=== PATIENT | female | born 1980 | race Caucasian/White ===

== ENCOUNTER 2019-10-24 19:57 | Emergency (ER) | payer OTHER, SELFPAY ==
--- NOTE | ~2019-10-24 | CT_ITS ---
EXAMINATION: CT abdomen pelvis w con DATE: 10/24/2019 21:27 INDICATION: Suprapubic and right lower quadrant abdominal pain. Nausea. TECHNIQUE: Computed tomography (CT) of the abdomen and pelvis was performed with 100 mL Omnipaque-350 intravenous contrast. Automated exposure control and iterative reconstruction technique were employe d. The dose-length product was 932.05 mGy-cm. COMPARISON: 12/13/2017 FINDINGS: Lung bases are clear. Heart size is normal. No pericardial or pleural effusion. Cholecystectomy clips the gallbladder fossa. Liver, spleen, pancreas, bilateral adrenal glands and kidneys are normal. [place] els including the appendix are normal. Moderate amount of colonic stool. Bladder and anteverted uteru s are normal. Bilateral adnexal cysts measuring 2.1 and 1.5 cm on the right and 1.6 cm on the left. N o free intraperitoneal gas or fluid. No pathologically enlarged abdominal or pelvic lymphadenopathy. Bilateral hip osteoarthritis, mild on the left and mild to moderate on the right. Moderate right sacr oiliitis which could also be degenerative in etiology. IMPRESSION: 1. Bilateral adnexal cysts. No acute intra-abdominal/pelvic process. Reviewed, dictated and finalized at location A. [employer]
[2019-10-24 20:02] VITALS: BP 136/77; PULSE 100; RESP 20; TEMP 36.9; O2SAT 100
[2019-10-24] MEDS: ONDANSETRON INJ 4 MG/2 ML VIAL IV PUSH (20:32)
[2019-10-24] MEDS: MORPHINE SULFATE 4 MG/ML INJ 2 MG IV PUSH (20:32)
[2019-10-24] MEDS: SODIUM CHLORIDE 0.9% IV 1,000 ML 999 ML IV CONT (20:34)
[2019-10-24 20:36] LABS: Add Urine Microscopic? NO; Appearance Urine Clear (Clear); Bilirubin Urine Negative (Negative); Blood Urine Negative (Negative); Color Urine Yellow (Yellow); Glucose Urine UA Negative (Negative); Ketones Urine Negative (Negative); Leukocyte Esterase Ur Negative LEU/UL (Negative); Nitrate Urine Negative (Negative); Protein Urine Negative (Negative); Specific Grav Ur <= 1.005 (1.010-1.020); Urobilinogen Urine 0.2 mg/dL (0.2-1.0); pH Urine 5.5 (5.0-8.0)
[2019-10-24 20:37] LABS: Basophils Absolute Auto 0.02 K/mm3 (0.00-0.10); Basophils Percent Auto 0.2 % (0.0-1.0); Hematocrit 40.6 % (35.0-49.0); Hemoglobin 13.7 g/dL (12.0-15.0); Immature Granulocyte Absolute 0.01 K/mm3 (0.00-0.00); Immature Granulocyte Percent A 0.1 % (0.0-0.0); Lymphocytes Absolute Auto 3.26 K/mm3 (1.10-4.50); Lymphocytes Percent Auto 35.6 % (18.0-42.0); Mean Corpuscular HGB Conc 33.7 g/dL (32.0-36.0); Mean Corpuscular Hemoglobin 30.9 pg (27.0-31.0); Mean Corpuscular Volume 91.4 fL (78.0-102.0); Mean Platelet Volume 10.6 fl (9.2-11.8); Monocytes Percent Auto 5.5 % (2.0-11.0); Neutrophils Absolute Auto 5.4 K/mm3 (1.7-7.2); Neutrophils Percent Auto 58.6 % (50.0-70.0); Platelet Count Result 238 K/mm3 (150-420); Red Blood Count 4.44 M/mm3 (4.20-5.40); White Blood Count 9.2 K/mm3 (4.8-10.8)
[2019-10-24 20:41] LABS: Pregnancy On Board Control Positive; Specific Gravity Ur <= 1.005 (1.010-1.035); Urine Pregnancy Test Negative
[2019-10-24 20:49] LABS: Prothrombin Time 10.2 Seconds (9.64-11.0)
[2019-10-24 20:50] LABS: Alanine Aminotransferase 14 U/L (14-59); Albumin Level 3.1 g/dL (3.4-5.0); Alkaline Phosphatase 88 U/L (46-116); Anion Gap 15.9 mmol/L (7-16); Aspartate Amino Transferase 17 U/L (15-37); Bilirubin,Total 0.2 mg/dL (0.00-1.00); Blood Urea Nitrogen 9 mg/dL (7-18); Calcium 8.1 mg/dL (8.5-10.1); Carbon Dioxide 25 mmol/L (21-32); Chloride 102 mmol/L (98-108); Estimated Glomerular Filt Rate > 60; Glucose 109 mg/dL (70-99); Lipase 172 U/L (73-393); Osmolality Calculated 287 mOsm/kg (285-295); Potassium 3.9 mmol/L (3.5-5.1); Sodium 139 mmol/L (136-145); Total Protein 7.1 g/dL (6.4-8.2)
--- NOTE | 2019-10-24 21:50 | ED.ABDPAIN ---
HPI - Abdominal Pain General Chief Complaint: Abdominal Pain Stated Complaint: pain in pelvic area Related Data Home Medications Medication Instructions Recorded Confirmed albuterol sulfate 2 puff INHALATION Q4-5H PRN 10/24/19 10/24/19 duloxetine 60 mg PO DAILY 10/24/19 10/24/19 gabapentin 300 mg PO TID 10/24/19 10/24/19 minocycline 100 mg PO DAILY 10/24/19 10/24/19 Allergies Allergy/AdvReac Type Severity Reaction Status Date / Time Penicillins Allergy Rash Verified 10/24/19 21:26 Sulfa (Sulfonamide Allergy Rash Verified 10/24/19 21:26 Antibiotics) Review of Systems Review of Systems: All systems reviewed & are unremarkable except as noted in HPI and below Constitutional: Constitutional: Reports as per HPI, Denies chills and Denies fever(s) Cardiovascular: Cardiovascular: Reports as per HPI and Reports no additional cardiovascular complaints Respiratory: Respiratory: Reports as per HPI and Reports no additional respiratory complaints Gastrointestinal: Gastrointestinal: Reports as per HPI and Reports abdominal pain Genitourinary: Genitourinary: Reports no additional female genitourinary complaints Musculoskeletal: Musculoskeletal: Reports no additional musculoskeletal complaints Neurologic: Reports system reviewed and no additional complaints, except as documented Endocrine: Endocrine: Reports no additional endocrine complaints [facility] Past Medical History Medical History (Updated 10/24/19 @ 22:05 by Sandip Moore MD) COPD (chronic obstructive pulmonary disease) Depression Ovarian cyst Exam Const: General: cooperative, healthy appearing, comfortable and no acute distress Chest: Chest palpation & inspection: normal inspection of the chest Resp: Effort & Inspection: normal respiratory effort and able to speak in complete sentences Cardio: Jugular venous distension: no JVD Palpation: normal PMI Rate: regular rate Rhythm: regular rhythm Heart sounds: S1 normal heart sound present and S2 normal heart sound present GI: Inspection: normal to inspection GI Palp: Yes abdominal tenderness (RLQ abd ttp) and Yes Tenderness to palpation present (GI) Auscultation: normal bowel sounds Course Vital Signs Vital signs: Vital Signs Temperature 36.9 C 10/24/19 20:02 Pulse Rate 100 10/24/19 20:02 Respiratory Rate 20 10/24/19 20:02 Blood Pressure 136/77 10/24/19 20:02 Pulse Oximetry 100 10/24/19 20:02 Temperature 36.9 C 10/24/19 20:02 Pulse Rate 100 10/24/19 20:02 Respiratory Rate 20 10/24/19 20:02 Blood Pressure 136/77 10/24/19 20:02 Pulse Oximetry 100 10/24/19 20:02 MDM - Abdominal Pain Lab Data Result diagrams: 10/24/19 20:31 10/24/19 20:31 Labs: Lab Results 10/24/19 10/24/19 10/24/19 Range/Units 20:31 20:31 20:31 WBC 9.2 (4.8-10.8) K/mm3 RBC 4.44 (4.20-5.40) M/mm3 Hgb 13.7 (12.0-15.0) g/dL Hct 40.6 (35.0-49.0) % MCV 91.4 (78.0-102.0) fL MCH 30.9 (27.0-31.0) pg MCHC 33.7 (32.0-36.0) g/dL RDW 14.0 (11.6-14.4) % Plt Count 238 (150-420) K/mm3 MPV 10.6 (9.2-11.8) fl Immature Gran % (Auto) 0.1 H (0.0-0.0) % Neut % (Auto) 58.6 (50.0-70.0) % Lymph % (Auto) 35.6 (18.0-42.0) % [place] % (Auto) 5.5 (2.0-11.0) % Eos % (Auto) 0.0 L (1.0-6.0) % Baso % (Auto) 0.2 (0.0-1.0) % Lymph # (Auto) 3.26 (1.10-4.50) K/mm3 [place] # (Auto) 0.50 (0.10-0.90) K/mm3 Eos # (Auto) 0.00 L (0.02-0.50) K/mm3 Baso # (Auto) 0.02 (0.00-0.10) K/mm3 Abs Immat Gran (auto) 0.01 H (0.00-0.00) K/mm3 Absolute Neuts (auto) 5.4 (1.7-7.2) K/mm3 Absolute Nucleated RBC 0.00 (0.00-0.00) K/mm3 Nucleated RBC % 0.0 (0-0.0) % PT 10.2 (9.64-11.0) Seconds INR 1.0 APTT 29.0 (22.3-31.6) SEC Sodium (136-145) mmol/L Potassium (3.5-5.1) mmol/L Chloride (98-108) mmol/L Carbon Dioxide (21-32) mmol/L Anion Gap (7-16)
[2019-10-24 22:25] VITALS: BP 116/65; PULSE 75; RESP 20; O2SAT 100
== END 2019-10-24 22:27 | disposition home or self-care (01) ==
PROVIDERS: Emergency Provider Family Medicine; PCP Family Medicine
DX: N83.201 Unspecified ovarian cyst, right side (principal)
CPT/HCPCS: 36415; 74177; 80053; 81003; 81025; 83690; 85025; 85610; 85730; 96361; 96374; 96375; 99282; 99284; J2270; J2405; J7030; Q9965